=== PATIENT | male | born 1945 | race Caucasian/White ===

== ENCOUNTER 2022-01-04 05:54 | Observation (INO) | payer OTHER ==
[~2022-01-04] VITALS: Ht 185.4 cm; Wt 85.4 kg
[~2022-01-04 05:54] MED LIST: NITR.4SL SL; OMEP20ER PO
[2022-01-04] MEDS ORDERED: PROSTIN VR500 MCG/3 IV (06:25)
--- NOTE | 2022-01-04 10:30 | NUR ---
PT CHEST PAIN 2/10 POST SL X3. 1" NTG PASTE PLACED ON L UPPER CHEST. ZOFRAN 8MG IVP GIVEN FOR NAUSEA.
--- NOTE | 2022-01-04 10:39 | NUR ---
PT REPORTS NAUSEA RESOLVED POST ZOFRAN. AT BEDSIDE. CHEST PAIN 09/14.
--- NOTE | 2022-01-04 16:22 | NUR ---
UPDATE PT REMAINS ALERT AND ORIENTED. VS STABLE. O2 SATS REMAIN ABOVE 90% ON RA. HR SINUS FELI 40-50'S. ANGIO EDEMA NOTED TO NECK AREA POST PROCEDURE HAS IMPROVED SINCE BENADRYL ADMINISTRATION. PT DENIES ANY DIFFICULTY BREATHING OR SWALLOWING. NO SWELLING NOTED TO TONGUE. RIGHT RADIAL SITE WITH DIME SIZE HEMATOMA UNCHANGED SINCE ARRIVAL. TR BAND RECOVERED PER UNIT PROTOCOL AND WILL BE REMOVED IN 1 HOUR. PT DENIES ANY CP. HEADACHE HAS RESOLVED. PT ABLE TO STAND AND AMBULATE TO BATHROOM WITH MINIMAL ASSISTANCE. PT EDUCATED ON ALL RESTRICTIONS TO RIGHT ARM. WILL CONTINUE TO MONITOR CLOSELY
[2022-01-05 03:48] LABS: Hematocrit 39.2 % (37.0-53.0); Hemoglobin 13.4 g/dL (13.5-17.5); Mean Corpuscular HGB 32.8 pg (26.0-34.0); Mean Corpuscular HGB Conc 34.2 g/dL (31.5-36.5); Mean Corpuscular Volume 96 fL (80-100); Platelet Count 175 K/mm3 (150-400); RDW Coefficient Variation 12.8 % (11.7-14.2); RDW Standard Deviation 45.8 fL (35.1-46.3); Red Blood Cell Count 4.08 M/mm3 (4.30-5.90); White Blood Cell Count 8.44 K/mm3 (4.00-11.30)
[2022-01-05 04:12] LABS: LDL/HDL RATIO 2.9; Very Low Density Lipoprot Chol 21 mg/dL (6-32)
[2022-01-05 04:13] LABS: Anion Gap 5 mmol/L (6-16); Blood Urea Nitrogen 15 mg/dL (8-24); Bun/Creatinine Ratio 17.5 (12.0-20.0); CHOL/HDL RATIO 4.4; CO2, Blood 26 mmol/L (21-32); Calcium, Blood 8.3 mg/dL (8.5-10.1); Chloride, Blood 109 mmol/L (98-108); Cholesterol 205 mg/dL (50-200); Creatinine, Blood 0.86 mg/dL (0.60-1.20); Glomerular Filtration Rate >60 (60-); Glucose, Blood 105 mg/dL (70-99); HDL Cholesterol 47 mg/dL (>39); Low Density Lipoprotein Chol 137 mg/dL (0-110); Potassium, Blood 4.1 mmol/L (3.5-5.5); Sodium, Blood 140 mmol/L (136-145); Triglycerides 107 mg/dL (30-160)
--- NOTE | 2022-01-05 06:02 | NUR ---
SHIFT SUMMARY PT A&O X4. PT IS COOPERATIVE AND PLEASANT UPON INTERACTION. VSS; HEART RHYTHM IS SINUS BRADYCARDIA WITH RATE IN 50'S. THIS IS PT'S BASELINE. PT DENIES CHEST PAIN AND CHEST PRESSURE. PT DENIES SOB. RIGHT RADIAL SITE HAS BRUSING; NO CHANGES THROUGHOUT SHIFT. PT DENIES TENDERNESS OR PAIN AT SITE. NO SWELLING NOTED. PT HAS BEEN UP TO BATHROOM INDEPENDENTLY. PT TOLERATING ACTIVITY WELL. WILL CONTINUE TO MONITOR. CALL LIGHT WITHIN REACH AND BED IN LOWEST POSITION.
[2022-01-05] MEDS ORDERED: Aspir 8181 MG PO (11:46)
[2022-01-05] MEDS ORDERED: ATOR80 PO (11:47)
[2022-01-05] MEDS ORDERED: CLOP75 PO (11:48)
== END 2022-01-05 12:14 | disposition home or self-care (01) ==
LOC: MHTC 05:54 → PCU 12:14 → MHTC 12:22 → PCU 01-05 12:14
PROVIDERS: ADMIT Internal Medicine Cardiovascular Disease
DX: I25.118 Atherosclerotic heart disease of native coronary artery with other forms of angina pectoris (principal); E78.5 Hyperlipidemia, unspecified; C61 Malignant neoplasm of prostate; K21.9 Gastro-esophageal reflux disease without esophagitis; Z87.891 Personal history of nicotine dependence
CPT/HCPCS: 36415; 76937; 80048; 80061; 85027; 85347; 92921; 93005; 93010; 93454; 99152; 99153; A9270; C1725; C1769; C1874; C1887; C1894; C9600; G0378; J0461; J1200; J1644; J2250; J2405; J3010; J7030; Q9967

== ENCOUNTER 2024-03-28 07:34 | Emergency (ER) | payer OTHER ==
[~2024-03-28] VITALS: Ht 185.4 cm; Wt 81.7 kg
[~2024-03-28 07:34] MED LIST changes: +ATOR80 PO; +Aspir 8181 MG PO; +CLOP75 PO; +PROSTIN VR500 MCG/3 IV
[2024-03-28 08:45] VITALS: BP 123/58
== END 2024-03-28 08:54 | disposition home or self-care (01) ==
LOC: ER 07:34
DX: U07.1 COVID-19 (principal); Z79.02 Long term (current) use of antithrombotics/antiplatelets; Z79.82 Long term (current) use of aspirin; Z79.899 Other long term (current) drug therapy
CPT/HCPCS: 71045